=== PATIENT | male | born 1960 | race Caucasian/White ===

== ENCOUNTER → 2020-08-18 | Outpatient (CLI) | payer BC ==
[2020-08-18 12:04] LABS: HEMOGLOBIN 14.1 gm/dl (14.0-17.5); RED BLOOD COUNT 4.61 M/UL (4.20-5.50); WHITE BLOOD COUNT 5.6 K/UL (4.5-11.0)
[2020-08-18 12:27] LABS: BUN/CREATININE RATIO 18 (0-10)
== END ==
LOC: LAB 11:04
PROVIDERS: Nurse Practitioner Family
DX: R50.9 Fever, unspecified (principal); R11.0 Nausea; E86.0 Dehydration
CPT/HCPCS: 36415; 80053; 82550; 85027

== ENCOUNTER → 2020-08-31 | Outpatient (CLI) | payer BC ==
[2020-08-31 09:55] LABS: HEMOGLOBIN 15.2 gm/dl (14.0-17.5); RED BLOOD COUNT 4.99 M/UL (4.20-5.50); WHITE BLOOD COUNT 6.4 K/UL (4.5-11.0)
[2020-09-01 09:14] LABS: SARS COV-2 IGG AB Positive (Negative)
[2020-09-01 11:14] LABS: RHEUMATOID ARTHRITIS FACTOR <10.0 IU/mL (0.0-13.9)
[2020-09-01 18:08] LABS: SARS COV-2 IGM AB Positive (Negative)
== END ==
LOC: LAB 09:15
PROVIDERS: Internal Medicine
DX: R50.9 Fever, unspecified (principal); R91.8 Other nonspecific abnormal finding of lung field; Z01.84 Encounter for antibody response examination
CPT/HCPCS: 36415; 71046; 85025; 85652; 86038; 86140; 86431; 86618; 86769

== ENCOUNTER → 2022-04-13 | Outpatient (CLI) | payer BC ==
[2022-04-13 10:47] LABS: BUN/CREATININE RATIO 16 (0-10)
== END ==
LOC: LAB 09:38
DX: R73.03 Prediabetes (principal)
CPT/HCPCS: 36415; 80053; 80061; 83036

== ENCOUNTER → 2022-05-05 | Outpatient (CLI) | payer BC | LOC: HEART 5 09:15 | DX: R07.9 Chest pain, unspecified (principal) | CPT/HCPCS: 78452; A9502 ==